=== PATIENT | male | born 1960 | race Caucasian/White ===

== ENCOUNTER 2018-04-05 11:20 | Emergency (ER) | payer BC ==
[2018-04-05] MEDS ORDERED: Ketorolac INJ* 60 MG/2 ML VIAL IM ONE (11:45)
[2018-04-05] MEDS ORDERED: LORazepam TAB(*) 1 MG PO ONE (11:45)
[2018-04-05 11:56] VITALS: BP 116/84
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
[2018-04-05] MEDS ORDERED: HYDROcodone/ACETAMIN 5-325 MG* 1 TAB PO ONE (12:51)
== END 2018-04-05 13:10 | disposition home or self-care (01) ==
LOC: UCCORT 11:20
DX: M11.262 Other chondrocalcinosis, left knee (principal); M54.5 Low back pain; F17.210 Nicotine dependence, cigarettes, uncomplicated
CPT/HCPCS: 96372; 99202; A9270-GY; G0463; J1885